=== PATIENT | male | born 1960 | race Caucasian/White ===

== ENCOUNTER → 2017-02-21 | Outpatient (CLI) | payer OTHER ==
[~2017-02-21] MED LIST: ASPI81TA11 PO; BUPR150CR PO; LISI-519 PO; OMEP20TA PO
--- NOTE | 2017-02-21 16:47 | RADRPT ---
EXAM DATE/TIME: 02/21/2017 15:09 [facility] COMPARISON: CHEST PA & LAT, April 08, 2015, 8:30. INDICATIONS : Short of breath. MEDICAL HISTORY : Chronic obstructive pulmonary disease. myocardial infarction x3 SURGICAL HISTORY : None. ENCOUNTER: Initial ACUITY: 1 day PAIN SCORE: 0/10 LOCATION: Bilateral chest FINDINGS: PA and lateral views of the chest. The lungs are clear. Cardiomediastinal silhouette within normal li mits. No evidence of pleural effusion or pneumothorax. CONCLUSION: No acute cardiopulmonary disease identified. Myles Paris MD on February 21, 2017 at 16:45 Board Certified Radiologist. This report was verified electronically.
== END ==
LOC: HRAD 14:56
PROVIDERS: ATTEND Family Medicine
DX: I10 Essential (primary) hypertension (principal)
CPT/HCPCS: 71020

== ENCOUNTER → 2017-08-09 | Outpatient (CLI) | payer OTHER ==
--- NOTE | 2017-08-09 11:39 | RADRPT ---
EXAM DATE/TIME: 08/09/2017 10:52 [facility] COMPARISON: CHEST PA & LAT, February 21, 2017, 15:09. INDICATIONS : Right knee pain without injury. MEDICAL HISTORY : Torn meniscus. SURGICAL HISTORY : None. ENCOUNTER: Initial ACUITY: 7 - 11 months PAIN SCORE: 9/10 LOCATION: Right lateral knee. FINDINGS: The osseous structures are intact. There is no significant effusion. No acute fracture is seen. CONCLUSION: No acute bony abnormality identified. Jake Olson MD on August 09, 2017 at 11:36 Board Certified Radiologist. This report was verified electronically.
== END ==
LOC: HRAD 10:40
PROVIDERS: ATTEND Family Medicine
DX: M25.561 Pain in right knee (principal)
CPT/HCPCS: 73564

== ENCOUNTER → 2018-02-05 | Outpatient (CLI) | payer OTHER ==
[~2018-02-05] MED LIST changes: -ASPI81TA11 PO; +ASPI81TA23 PO; -OMEP20TA PO; +OMEP20TA93 PO
--- NOTE | 2018-02-05 17:59 | RADRPT ---
EXAM DATE/TIME: 02/05/2018 16:31 [facility] COMPARISON: No previous studies available for comparison. INDICATIONS : Right knee pain. MEDICAL HISTORY : Hypertension. SURGICAL HISTORY : Bilateral knees. ENCOUNTER: Subsequent ACUITY: 4-6 months PAIN SCORE: 4/10 LOCATION: Right knee TECHNIQUE: Multiplanar, multisequence MRI examination was performed without contrast. FINDINGS: Partial meniscectomy changes are seen of the medial meniscus. There is minimally irregular, mostly horizontal tearing of the body remnant, series 3 image 20. No displaced fragment of the body remnant is slightly subluxed to the medial joint margin. There is mild medial compartment chondral th inning. The lateral meniscus is normal. Increased T2 signal seen within the ACL, probably mucoid degeneration although a recent sprain would be possible. Fibers are intact and appear reasonably taut. The posterior cruciate ligament is normal. Patchy mild to moderate chondromalacia seen of the lateral facet of the patella. There is a chronic a ppearing longitudinal defect distally of vastus lateralis/lateral retinaculum with approximately 11 m m of separation, series 2 image 4. The extensor mechanism is otherwise normal. There is a small effusion and mild synovitis. CONCLUSION: 1. Previous partial medial meniscectomy. Minimally horizontal tearing and slight extrusion of the body remnant. 2. Abnormal ACL, most typical of equally degeneration. No tear or apparent laxity. 3. Mild generalized medial compartment osteoarthritis. 4. Patchy mild to moderate chondromalacia patella laterally. 5. Chronic appearing longitudinal defect of distal vastus lateralis/lateral retinaculum. This is pres umably related to remote trauma or possibly previous surgery. Mayur Gonzales MD on February 05, 2018 at 17:51 Board Certified Radiologist. This report was verified electronically.
== END ==
LOC: HRAD 15:29
PROVIDERS: ATTEND Orthopaedic Surgery
DX: M25.561 Pain in right knee (principal)
CPT/HCPCS: 73721

== ENCOUNTER → 2018-03-02 | Day surgery (SDC) | payer OTHER ==
[~2018-03-02] VITALS: Ht 167.6 cm; Wt 81.0 kg
[~2018-03-02] MED LIST changes: +ACETAMINOPHEN/HYDROcodone 325 MG/5 MG TAB PO PRN; +BUPIVACAINE/EPINEPHRINE 0.5% PF 30 ML VIAL ONE; +CHLORHEXIDINE GLUCONATE 2 % 1 PACK (2 CLOTHS) TOPICAL PRN; +CHLORHEXIDINE GLUCONATE 4% SOLN 120 ML BTL TOPICAL SCH; +INHALER INH; +KETOROLAC TROMETHAMINE 30 MG/ML (IVP) VIAL IM PRN; +LACTATED RINGER'S 1000 ML IV PRN; +METOPROLOL TARTRATE 25 MG TAB PO PRN; +MORPHINE SULFATE 4 MG/ML INJ ONE; +ONDANSETRON HCL 4 MG/2 ML VIAL IV PUSH PRN; +POVIDONE IODINE 5% (ANTISEPSIS KIT) 4 APPLICATIONS EACH NARE PRN; +SODIUM CHLORID 0.9% 500 ML IV PRN; +TRIAMCINOLONE ACETONIDE 40 MG/ML VIAL ONE
--- NOTE | 2018-03-02 15:13 | MP ---
cc: Yimi Loomis MD DATE OF OPERATION: 03/02/2018 DATE OF OPERATION: 03/02/2018 SURGEON: Yimi Loomis MD PREOPERATIVE DIAGNOSIS: Tear, medial meniscus, right knee joint. POSTOPERATIVE DIAGNOSES: 1. Tear, medial meniscus, right knee joint. 2. Osteo/posttraumatic arthritis, medial compartment. PROCEDURE PERFORMED: Arthroscopic subtotal medial meniscectomy with chondroplasty of the medial compartment. DETAILS OF PROCEDURE: The patient was placed on the operating table in the supine position and the right knee was prepped and draped in the usual sterile fashion. A timeout was called, and the patient's name, procedure location were fully confirmed. An anterolateral portal was created for introduction of the scope after distending the joint with lactated Ringer's solution. A systematic examination of the knee joint revealed unremarkable suprapatellar pouch and unremarkable patellofemoral joint. The intercondylar fossa revealed intact cruciate ligaments. The medial compartment revealed a complex tearing of the posterior horn of the medial meniscus extending to the junction to the middle one-third. The corresponding surfaces of the bone were with significant osteochondral lesions, some of it down to subchondral bone. A motorized meniscal resector was placed into the medial compartment through a separate stab wound. A chondroplasty of the medial femoral condyle and medial tibial plateau was performed along with resection of the torn portion of meniscus. This was completed with hand instruments as well as the motorized instrument and all debris removed. The lateral compartment was unremarkable without torn meniscus noted. The joint was thoroughly irrigated and aspirated and the 2 stab wounds were then closed after removal of all instruments. The 3-0 nylon suture was applied, followed by Xeroform gauze. An intra-articular injection was placed through the lateral portal before closure, inserting 10 mL of 0.5% Marcaine with epinephrine and 1 mL/40 mg of Kenalog. Sponge count, needle counts and instrument counts were reported correct x 2. The estimated blood loss was nil. The patient tolerated the procedure well and was transferred to the recovery room in satisfactory condition. Yimi Loomis MD ALBERT/KD , 02:46 PM , 03:13 PM
[2018-03-02 15:50] VITALS: BP 168/91; PULSE 64; RESP 16; TEMP 97.8; O2SAT 95
== END | disposition home or self-care (01) ==
LOC: PHSDC 08:35
PROVIDERS: ATTEND Orthopaedic Surgery
DX: S83.241A Other tear of medial meniscus, current injury, right knee, initial encounter (principal); M17.31 Unilateral post-traumatic osteoarthritis, right knee; I25.2 Old myocardial infarction; J44.9 Chronic obstructive pulmonary disease, unspecified
CPT/HCPCS: 01400; 29881; E0113; J2270; J3010; J3301; J7120